=== PATIENT | male | born 1940 | race Caucasian/White ===

== ENCOUNTER 2016-12-02 19:16 | Emergency (ER) | payer MEDICARE, OTHER ==
[2016-12-02 20:00] VITALS: BP 138/77
--- NOTE | 2016-12-02 20:11 | UC ---
Dental HPI - HPI Summary HPI Summary: dental pain x 5 days pain of the 4 of the lower front teeth + pain , swelling, redness no fever, no chills - History of Current Complaint Chief Complaint: UCDentalProblem Stated Complaint: DENTAL COMPLAINT Time Seen by Provider: 12/02/16 20:05 Hx Obtained From: Patient Onset/Duration: Gradual Onset, Lasting Days - 5, Still Present Severity: Moderate Aggravating: Cold, Chewing Alleviating: Nothing Related History: Swelling - Allergies/Home Medications Allergies/Adverse Reactions: Allergies Allergy/AdvReac Type Severity Reaction Status Date / Time Diazepam [From Valium] Allergy See Comment Verified 12/02/16 20:02 Home Medications: Home Medications Aspirin [Aspirin 81 MG TAB] 81 mg PO QAM 12/02/16 [History Confirmed 12/02/16] High Blood Pressure Med 1 tab PO BID 12/02/16 [History Confirmed 12/02/16] PMH/Surg Hx/FS Hx/Imm Hx Cardiovascular History Of: Reports: Hypertension - Surgical History Surgical History: Yes Surgery Procedure, Year, and Place: testicle [id number] - Family History Known Family History: Positive: Hypertension - Social History Alcohol Use: Rare Substance Use Type: None Smoking Status (MU): Former Smoker Review of Systems Constitutional: Negative Skin: Negative Eyes: Negative ENT: Dental Pain Respiratory: Negative Cardiovascular: Negative All Other Systems Reviewed And Are Negative: Yes Physical Exam Triage Information Reviewed: Yes Appearance: Well-Appearing, No Pain Distress, Well-Nourished Vital Signs: Initial Vital Signs Temp 99.6 F 12/02/16 19:51 Pulse 100 12/02/16 19:51 Resp 20 12/02/16 19:51 BP 138/77 12/02/16 19:51 Pulse Ox 95 12/02/16 19:51 Vital Signs Reviewed: Yes Eyes: Positive: Conjunctiva Clear ENT: Positive: Normal ENT inspection, Hearing grossly normal, Pharynx normal Dental: Positive: Percussion Tenderness @, Gross Decay/Caries @, Cellulitis @ - front lower teeth Neck: Positive: Supple, Nontender, No Lymphadenopathy Respiratory: Positive: Chest non-tender, Lungs clear, Normal breath sounds, No respiratory distress Cardiovascular: Positive: No Murmur, Tachycardia Dental Complaint Course/Dx - Differential Dx/Diagnosis Provider Diagnoses: dental pain Discharge - Discharge Plan Condition: Stable Disposition: HOME Prescriptions: Amoxicillin (*) [Amoxicillin 875 MG (*)] 875 mg PO BID #20 tab Patient Education Materials: Toothache (ED) Additional Instructions: follow up with your dentist timothy
== END 2016-12-02 20:22 | disposition home or self-care (01) ==
LOC: UCCORT 19:16
DX: K08.89 Other specified disorders of teeth and supporting structures (principal); I10 Essential (primary) hypertension; Z88.8 Allergy status to other drugs, medicaments and biological substances; Z87.891 Personal history of nicotine dependence
CPT/HCPCS: 99202; G0463

== ENCOUNTER 2017-12-12 07:45 | Emergency (ER) | payer MEDICARE, OTHER ==
[2017-12-12 08:03] VITALS: BP 123/79
--- NOTE | 2017-12-12 08:57 | UC ---
Abdominal Pain Male HPI - HPI Summary HPI Summary: Patient has been 24 hours without being able to keep down food or fluid. Patient has had frequent, patient reports every half hour watery diarrhea. Patient reports rigor and chills in the night. No recent antibiotics, no illness exposures, no recent travel, no abdominal surgeries. - History of Current Complaint Chief Complaint: UCGeneralIllness Stated Complaint: VOMITING Time Seen by Provider: 12/12/17 08:33 Hx Obtained From: Patient Onset/Duration: Sudden Onset, Lasting Days - 1, Still Present Timing: Constant Severity Initially: Moderate Severity Currently: Moderate Location: Discrete At: RLQ, Discrete At: LLQ Radiates: No Character: Cramping - (Please note her and she she is motion as opposed to exam to Aggravating Factor(s): Nothing Alleviating Factor(s): Nothing Associated Signs And Symptoms: Positive: Dizzy - orthostatic with this illness, Decreased Appetite, Nausea, Vomiting, Diarrhea - Allergies/Home Medications Allergies/Adverse Reactions: Allergies Allergy/AdvReac Type Severity Reaction Status Date / Time diazepam [From Valium] Allergy confusion Verified 12/12/17 08:04 Home Medications: Home Medications Amlodipine Besylate/Benazepril [Amlodipine Besylate/Benaz 5-40 mg-] 1 tab PO DAILY 12/12/17 [History Confirmed 12/12/17] Losartan TAB* [Cozaar TAB*] 25 mg PO DAILY 12/12/17 [History Confirmed 12/12/17] PMH/Surg Hx/FS Hx/Imm Hx Previously Healthy: No Cardiovascular History: Hypertension - Surgical History Surgical History: Yes [id number] - Family History Known Family History: Positive: Hypertension - Social History Occupation: Retired Lives: With Family Alcohol Use: Rare Substance Use Type: None Smoking Status (MU): Former Smoker Review of Systems Constitutional: Negative Skin: Negative Eyes: Negative ENT: Negative Respiratory: Negative Cardiovascular: Negative Gastrointestinal: Abdominal Pain, Vomiting, Diarrhea, Nausea Genitourinary: Negative Motor: Negative Neurovascular: Negative Musculoskeletal: Negative Neurological: Negative Psychological: Negative Is Patient Immunocompromised?: No All Other Systems Reviewed And Are Negative: Yes Physical Exam Triage Information Reviewed: Yes Appearance: Well-Appearing, No Pain Distress, Well-Nourished Vital Signs: Initial Vital Signs Temp 98.9 F 12/12/17 08:01 Pulse 98 12/12/17 08:01 Resp 18 12/12/17 08:01 BP 123/79 12/12/17 08:01 Pulse Ox 98 12/12/17 08:01 Vital Signs Reviewed: Yes Eye Exam: Normal Eyes: Positive: Conjunctiva Clear ENT Exam: Normal ENT: Positive: Normal ENT inspection, Hearing grossly normal. Negative: Nasal congestion, Trismus, Muffled voice, Hoarse voice, Dental tenderness Dental Exam: Normal Neck exam: Normal Neck: Positive: Supple, Nontender Respiratory Exam: Normal Respiratory: Positive: Chest non-tender, Lungs clear, Normal breath sounds, No respiratory distress, No accessory muscle use Cardiovascular Exam: Normal Cardiovascular: Positive: RRR, No Murmur, Pulses Normal, Brisk Capillary Refill Abdominal Exam: Other Abdomen Description: Positive: No Organomegaly, Distended, Other: - right and left lower abdomen pain. Negative: CVA Tenderness (R), CVA Tenderness (L), Peritoneal Signs Bowel Sounds: Positive: Present Musculoskeletal Exam: Normal Musculoskeletal: Positive: Strength Intact, ROM Intact, No Edema Neurological Exam: Normal Neurological: Positive: Alert, Muscle Tone Normal Psychological Exam: Normal Skin Exam: Normal Abd Pain Male Course/Dx - Course Course Of Treatment: npo--to ed with driving for further assessment and treatment of abdomen pain nausea,vomting and diarrhea - Differential Dx/Clinical Impression Provider Diagnoses: acute abdomen pain Discharge - Sign-Out/Discharge Documenting (check all that apply): Discharge/Admit/Transfer - Discharge Plan Condition: Fair Disposition: HOME Discharge Disposition Comment: [facility] Emergency Department Patient Education Materials: Acute Abdominal Pain (ED) Referrals: Darío Townsend MD [Medical Doctor] - If Needed Additional Instructions: Nothing to eat or drink please go directly to emergency department at [facility] for further evaluation - Billing Disposition and Condition Condition: FAIR Disposition: HOME
== END 2017-12-12 08:56 | disposition home or self-care (01) ==
LOC: UCEAST 07:45
DX: R10.31 Right lower quadrant pain (principal); R10.32 Left lower quadrant pain; Z88.8 Allergy status to other drugs, medicaments and biological substances; I10 Essential (primary) hypertension; Z87.891 Personal history of nicotine dependence
CPT/HCPCS: 99212; G0463

== ENCOUNTER 2017-12-12 09:16 | Emergency (ER) | payer MEDICARE, OTHER ==
[2017-12-12 09:47] LABS: ABS Basophils 0 10^3/ul (0-0.2); ABS Eosinophils 0 10^3/ul (0-0.6); ABS Lymphocytes 0.8 10^3/ul (1.0-4.8); ABS Monocytes 0.7 10^3/ul (0-0.8); ABS Neutrophils 5.5 10^3/ul (1.5-7.7); ABS Nucleated RBC 0 10^3/ul; Eosinophil % 0.2 % (0-6); Hematocrit 48 % (42-52); Hemoglobin 16.5 g/dl (14.0-18.0); Lymphocyte % 11.1 % (25-47); Mean Corpuscular HGB Conc 34 g/dl (31-36); Mean Corpuscular Hemoglobin 31 pg (27-31); Mean Corpuscular Volume 89 fL (80-94); Mean Platelet Volume 6.6 um3 (7.4-10.4); Nucleated Red Blood Cells % 0; Platelet Count 216 10^3/ul (150-450); Red Blood Count 5.39 10^6/ul (4.0-5.4); Red Cell Distribution Width 15 % (10.5-15)
[2017-12-12 09:56] LABS: INR 0.98 (0.77-1.02)
[2017-12-12 10:06] LABS: EGFR Non-African American 47.8 (>60)
[2017-12-12 10:48] LABS: Urine Appearance Clear; Urine Blood Negative (Negative); Urine Color Amber; Urine Ketones Negative (Negative); Urine Protein Negative (Negative); Urine Specific Gravity 1.029 (1.010-1.030); Urine Urobilinogen Negative (Negative)
[2017-12-12] MEDS ORDERED: Insulin REGULAR(*) 1 UNITS UNIT IV PUSH ONE (11:25)
[2017-12-12] MEDS ORDERED: NS 0.9% 1000 ML* 1,000 ML IV ONE (13:09)
[2017-12-12 15:26] VITALS: BP 157/90
--- NOTE | 2017-12-13 01:33 | ED ---
Arash Pozo Elizabeth, scribed for Rahel Louis MD on 12/12/17 at 0953 . Abdominal Pain/Male - HPI Summary HPI Summary: This patient is a 77 year old M presenting to [facility] accompanied by his with a chief complaint of hourly diarrhea since last night. The patient rates the pain 0/10 in severity. Symptoms aggravated by eating. Symptoms alleviated by nothing. Patient reports dull headache, chills, edema in his left knee, and vomiting once after eating. The patient also reports diarrhea once 2 weeks ago. Patient denies abd pain and fever. The patient has spent a lot of time outside but denies finding any definite ticks on himself, but states he is worried about tick exposure. Patient takes medication for HTN. Patient denies taking any antibiotics recently. No sick contacts. Has not traveled outside the country. Is on city water. Denies blood in the stool. The patient believes he had a colonoscopy at [place] approximately 4 years ago. In room, patients HR was 91 bpm, BP was 147/82, and SPO2 was 96. - History of Current Complaint Chief Complaint: EDAbdPain Stated Complaint: DIARRHEA, GENERAL ILL Time Seen by Provider: 12/12/17 09:24 Hx Obtained From: Patient, Family/Independent Producer Onset/Duration: Gradual Onset, Lasting Days - 2 days, Still Present Timing: Constant, Lasting Days - 2 days Severity Initially: Moderate Severity Currently: Mild Pain Intensity: 0 Pain Scale Used: 0-10 Numeric Location: Other - no abd pain Radiates: No Aggravating Factor(s): Nothing Alleviating Factor(s): Nothing Associated Signs And Symptoms: Positive: Decreased Appetite, Vomiting, Diarrhea , Other - headache, edema in left knee. Negative: Fever - Allergies/Home Medications Allergies/Adverse Reactions: Allergies Allergy/AdvReac Type Severity Reaction Status Date / Time diazepam [From Valium] Allergy confusion Verified 12/12/17 09:21 Home Medications: Home Medications Aspirin EC TAB* [Ecotrin EC Low Dose 81 MG*] 81 mg PO DAILY 12/12/17 [History Confirmed 12/12/17] Losartan TAB* [Cozaar TAB*] 100 mg PO DAILY 12/12/17 [History Confirmed 12/12/17 ] amLODIPine TAB* [Norvasc 5 mg TAB*] 10 mg PO DAILY 12/12/17 [History Confirmed 12/12/17] PMH/Surg Hx/FS Hx/Imm Hx Previously Healthy: No Cardiovascular History: Reports: Hx Hypertension - on meds Opthamlomology History: Denies: Hx Legally Blind EENT History: Denies: Hx Deafness - Surgical History Surgery Procedure, Year, and Place: testicle [id number]. Ankle surgery Infectious Disease History: No Infectious Disease History: Denies: Traveled Outside the [place] in Last 30 Days - Family History Known Family History: Positive: Hypertension - Social History Lives: With Family Alcohol Use: Rare Substance Use Type: Reports: None Smoking Status (MU): Former Smoker Review of Systems Positive: Chills. Negative: Fever Cardiovascular: Negative Respiratory: Negative Positive: Vomiting - x 1 only , Diarrhea - multiple times . Negative: Abdominal Pain Positive: no symptoms reported Positive: Edema - in left knee Skin: Negative Neurological: Negative Psychological: Normal All Other Systems Reviewed And Are Negative: Yes Physical Exam - Summary Physical Exam Summary: Appearance: Well-appearing, no pain distress, well-nourished, patient had to go to the restroom urgently and immediately to have diarrhea upon my entering the exam room Skin: Warm, color reflects adequate perfusion, dry Head: Normal Head/Face inspection, atraumatic Eyes: Conjunctiva clear ENT: Normal inspection Neck: Supple, no nodes, no JVD Respiratory: Lungs clear, normal breath sounds, no respiratory distress Cardio: RRR, No murmur, pulses normal, brisk capillary refill Abdomen: Soft, nontender, non-distended, no organomegaly, no masses Bowel sounds: Present Musculoskeletal: Strength Intact/ROM intact, no calf tenderness, swelling of the left knee (pt states this is chronic, not red or hot) Psychological: Normal Neuro: Alert, muscle tone normal, no focal deficit Triage Information Reviewed: Yes Vital Signs On Initial Exam: Initial Vitals Temp Pulse Resp BP Pulse Ox 98.7 F 98 17 123/76 96 12/12/17 09:18 12/12/17 09:18 12/12/17 09:18 12/12/17 09:18 12/12/17 09:18 Vital Signs Reviewed: Yes Diagnostics - Vital Signs Vital Signs Temp Pulse Resp BP Pulse Ox 12/12/17 09:18 98.7 F 98 17 123/76 96 - Laboratory Lab Results: Lab Results 12/12/17 Range/Units 09:36 WBC 7.0 (3.5-10.8) 10^3/ul RBC 5.39 (4.0-5.4) 10^6/ul Hgb 16.5 (14.0-18.0) g/dl Hct 48 (42-52) % MCV 89 (80-94) fL MCH 31 (27-31) pg MCHC 34 (31-36) g/dl RDW 15 (10.5-15) % Plt Count 216 (150-450) 10^3/ul MPV 6.6 L (7.4-10.4) um3 Neut % (Auto) 78.7 (38-83) % Lymph % (Auto) 11.1 L (25-47) % Wilkes % (Auto) 9.5 H (0-7) % Eos % (Auto) 0.2 (0-6) % Baso % (Auto) 0.5 (0-2) % Absolute Neuts (auto) 5.5 (1.5-7.7) 10^3/ul Absolute Lymphs (auto) 0.8 L (1.0-4.8) 10^3/ul Absolute Monos (auto) 0.7 (0-0.8) 10^3/ul Absolute Eos (auto) 0 (0-0.6) 10^3/ul Absolute Basos (auto) 0 (0-0.2) 10^3/ul Absolute Nucleated RBC 0 10^3/ul Nucleated RBC % 0 Result Diagrams: 12/12/17 09:36 12/12/17 09:36 Lab Statement: Any lab studies that have been ordered have been reviewed, and results considered in the medical decision making process. Re-Evaluation - Re-Evaluation first Re-evaluation Re-Evaluation Time: 12:59 Change: Unchanged Comment: states he is thirsty Second Eval Change: Improved Comment: pt tolerated clear liquids and IV is infusing. Feels better. No further diarrhea while in ED. Able to urinate. Abdominal Pain Fem Course/Dx - Course Course Of Treatment: Patient with hx of HTN reports vomiting and diarrhea but denies abd pain. CRP is very elevated, but C difficile toxin titer in stool is negative. Wbc count is mildly elevated. Pt is not anemic or hypotensive to suggest GI bleed. Lactate is normal. Allergies noted. In the ED course the patient was given IV fluids and tolerated clear liquids po. Pt had Lyme serologies sent due to complaints of chronic joint pains and swelling and exposure to ticks, due to his concern and family's concern. Patient will be discharged home with dx of diarrhea and hypertension in poor control. Patient is informed that the Lyme and several stool tests are still pending. The patient is agreeable with this plan. - Diagnoses Differential Diagnosis/HQI/PQRI: Bowel Obstruction, Diverticulitis, Ischemic Bowel, Other - gastroenteritis Provider Diagnoses: Diarrhea, Hypertension, poor control, Tick bite Discharge - Sign-Out/Discharge Documenting (check all that apply): Discharge/Admit/Transfer - Discharge Plan Condition: Stable Disposition: HOME Patient Education Materials: Acute Diarrhea (ED) Referrals: Darío Townsend MD [Primary Care Provider] - 2 Days Additional Instructions: We have sent Lyme testing on you due to your exposure to ticks. Those results are pending. You received IV fluids, and there are stool tests pending on you. Return to the ER if you have any new or worsening symptoms. - Billing Disposition and Condition Condition: STABLE Disposition: Home The documentation as recorded by the Arash meyers Elizabeth accurately reflects the service I personally performed and the decisions made by , Rahel Louis MD.
--- NOTE | 2017-12-13 10:58 | ED ---
Progress - Progress Note Progress Note: Patient's final stool results reveal positive immunoassay. Negative toxigenic C. difficile and negative O call blood. Patient presented with acute diarrhea. No further treatment at this time. Re-Evaluation - Re-Evaluation first Re-evaluation Re-Evaluation Time: 12:59 Change: Unchanged Course/Dx - Course Course Of Treatment: Patient with hx of HTN reports vomiting and diarrhea but denies abd pain. Test results with no significant abnormalities. Allergies noted. In the ED course the patient was given IV fluids. Patient will be discharged home with dx of diarrhea and hypertension in poor control. Patient is informed of the lyme and stool tests that are still pending. The patient is agreeable with this plan. - Diagnoses Provider Diagnoses: Diarrhea, Hypertension, poor control Discharge - Sign-Out/Discharge Documenting (check all that apply): Post-Discharge Follow Up - Discharge Plan Condition: Stable Disposition: HOME Patient Education Materials: Acute Diarrhea (ED) Referrals: Darío Townsend MD [Primary Care Provider] - 2 Days Additional Instructions: We have sent Lyme testing on you due to your exposure to ticks. Those results are pending. You received IV fluids, and there are stool tests pending on you. Return to the ER if you have any new or worsening symptoms. - Billing Disposition and Condition Condition: STABLE Disposition: Home
== END 2017-12-12 15:25 | disposition home or self-care (01) ==
LOC: ED 09:16
DX: R19.7 Diarrhea, unspecified (principal); T14.8XXA Other injury of unspecified body region, initial encounter; W57.XXXA Bitten or stung by nonvenomous insect and other nonvenomous arthropods, initial encounter; Y93.9 Activity, unspecified; Y92.9 Unspecified place or not applicable; I10 Essential (primary) hypertension; R51 Headache; R11.10 Vomiting, unspecified; R60.0 Localized edema; Z88.8 Allergy status to other drugs, medicaments and biological substances; Z82.49 Family history of ischemic heart disease and other diseases of the circulatory system; Z87.891 Personal history of nicotine dependence; R10.31 Right lower quadrant pain; R10.32 Left lower quadrant pain
CPT/HCPCS: 36415; 80053; 81003; 82150; 82272; 83605; 83630; 83690; 85025; 85610; 85730; 86140; 87045; 87046; 87328; 87329; 87493; 87899; 96374; 99284

== ENCOUNTER 2022-12-30 12:27 | Observation (INO) ==
[2022-12-30 12:55] LABS: ABS Basophils 0.1 10^3/uL (0.0-0.1); ABS Eosinophils 0.3 10^3/uL (0.0-0.5); ABS Lymphocytes 1.6 10^3/uL (1.0-4.8); ABS Neutrophils 7.1 10^3/uL (1.5-7.6); ABS Nucleated RBC 0.01 10^3/ul; Eosinophil % 3.3 %; Hematocrit 45.5 % (38-53); Hemoglobin 15.4 g/dL (13.2-16.3); Lymphocyte % 15.5 %; Mean Corpuscular Hemoglobin 30.2 pg (27-33); Mean Corpuscular Hgb Conc 33.8 g/dL (31-36); Mean Corpuscular Volume 89.2 fL (80-97); Mean Platelet Volume 6.6 fL (7.5-11.2); Nucleated Red Blood Cells % 0.1 /100 WBC (0.0-0.4); Platelet Count 321 10^3/uL (150-450); Red Cell Distribution Width 14.4 % (12-17); White Blood Count 10.2 10^3/uL (3.6-10.2)
[2022-12-30 13:04] LABS: Activated Partial Thrombo Time 27.9 seconds (26.0-38.0); INR 1.08 (0.88-1.18)
[2022-12-30 13:11] LABS: Albumin 3.7 g/dL (3.2-5.2); Albumin/Globulin Ratio 1.1 (1-3); Creatinine, Serum 1.53 mg/dL (0.67-1.17); Globulin 3.5 g/dL (2-4); Magnesium 2.1 mg/dL (1.9-2.7); Potassium 3.1 mmol/L (3.5-5.0); Total Bilirubin 0.5 mg/dL (0.2-1.0); Total Protein 7.2 g/dL (6.4-8.9); eGFR CKD-EPI 45.7 (>60)
[2022-12-30] MEDS ORDERED: Lactated Ringers 1000 ml BAG 1,000 ML IV ONE (13:31)
[2022-12-30] MEDS: KCL 20 MEQ/100 ML IVPREMIX 20 MEQ/100 ML BAG IV SCH ×2 (13:51→16:50)
[2022-12-30] MEDS ORDERED: Heparin DRIP 25,000 UNITS BAG 25,000 UNITS/500 ML BAG IV SCH (14:45)
[2022-12-30] MEDS ORDERED: Heparin 5000 UNITS/ML 1 mL VIAL IV SCH (15:00)
[2022-12-30 16:34] LABS: Creatinine, Serum 1.28 mg/dL (0.67-1.17); eGFR CKD-EPI 56.6 (>60)
[2022-12-30 18:30] LABS: C Reactive Protein 9.69 mg/L (<8.01)
[2022-12-30] MEDS ORDERED: Lactated Ringers 1000 ml BAG 1,000 ML IV SCH (19:00)
[2022-12-31 06:31] LABS: ABS Basophils 0.1 10^3/uL (0.0-0.1); ABS Eosinophils 0.4 10^3/uL (0.0-0.5); ABS Lymphocytes 1.7 10^3/uL (1.0-4.8); ABS Monocytes 0.9 10^3/uL (0.0-1.1); Eosinophil % 4.7 %; Hematocrit 41.6 % (38-53); Hemoglobin 14.5 g/dL (13.2-16.3); Lymphocyte % 21.7 %; Mean Corpuscular Hemoglobin 31.2 pg (27-33); Mean Corpuscular Hgb Conc 34.9 g/dL (31-36); Mean Corpuscular Volume 89.5 fL (80-97); Mean Platelet Volume 6.9 fL (7.5-11.2); Platelet Count 290 10^3/uL (150-450); Red Blood Count 4.65 10^6/uL (4.06-5.63); Red Cell Distribution Width 14.3 % (12-17); White Blood Count 8.1 10^3/uL (3.6-10.2)
[2022-12-31 06:52] LABS: Calcium 8.8 mg/dL (8.6-10.3); Creatinine, Serum 1.25 mg/dL (0.67-1.17); Potassium 3.5 mmol/L (3.5-5.0); eGFR CKD-EPI 58.2 (>60)
[2022-12-31 07:07] LABS: TSH Ultra Thyroid Stim Horm 3.36 mcIU/mL (0.34-5.60)
[2022-12-31] MEDS ORDERED: Sulfur Hexaflouride MICROSPHR 25 MG VIAL ONE (08:25)
[2022-12-31] MEDS ORDERED: Potassium EFFERVES 25 meq TAB PO ONE (10:08)
[2022-12-31] MEDS: Aspirin EC 81 mg TAB.EC (enteric coated) PO SCH (10:09)
[2022-12-31] MEDS: Cholecalciferol (VIT D3) 1,000 unit TAB PO SCH (10:10)
[2022-12-31] MEDS ORDERED: Aminophylline 25 MG/ML VIAL ONE (10:10)
[2022-12-31] MEDS ORDERED: Regadenoson 0.4 MG/5 ML SYRINGE ONE (10:10)
[2022-12-31 17:18] LABS: Urine Appearance Clear; Urine Bilirubin Negative (Negative); Urine Blood Negative (Negative); Urine Color Yellow; Urine Glucose Negative (Negative); Urine Ketones Negative (Negative); Urine Nitrite Negative (Negative); Urine Protein Negative (Negative); Urine Specific Gravity 1.011 (1.002-1.030); Urine Urobilinogen Negative (Negative)
[2022-12-31 17:46] LABS: High Sensitivity Troponin 1 Hr 526 pg/mL (<20)
[2023-01-01 05:42] LABS: ABS Eosinophils 0.4 10^3/uL (0.0-0.5); ABS Lymphocytes 1.7 10^3/uL (1.0-4.8); ABS Monocytes 0.8 10^3/uL (0.0-1.1); ABS Neutrophils 5.9 10^3/uL (1.5-7.6); Eosinophil % 4.8 %; Hematocrit 41.7 % (38-53); Hemoglobin 14.4 g/dL (13.2-16.3); Lymphocyte % 19.2 %; Mean Corpuscular Hemoglobin 30.9 pg (27-33); Mean Corpuscular Hgb Conc 34.5 g/dL (31-36); Mean Corpuscular Volume 89.5 fL (80-97); Mean Platelet Volume 6.9 fL (7.5-11.2); Platelet Count 282 10^3/uL (150-450); Red Blood Count 4.66 10^6/uL (4.06-5.63); Red Cell Distribution Width 14.4 % (12-17); White Blood Count 8.8 10^3/uL (3.6-10.2)
[2023-01-01 05:58] LABS: Calcium 8.7 mg/dL (8.6-10.3); Creatinine, Serum 1.07 mg/dL (0.67-1.17); Magnesium 1.9 mg/dL (1.9-2.7); Potassium 3.8 mmol/L (3.5-5.0); eGFR CKD-EPI 70.2 (>60)
[2023-01-01] MEDS: Cholecalciferol (VIT D3) 1,000 unit TAB PO SCH (08:29)
[2023-01-01] MEDS: Aspirin EC 81 mg TAB.EC (enteric coated) PO SCH (08:30)
[2023-01-01] MEDS ORDERED: Potassium Chlor 20 meq TAB.ER PO ONE (09:09)
[2023-01-01] MEDS ORDERED: Magnesium Sulfate 2 gm BAG 2 GM/50 ML BAG IVPB ONE (09:10)
[2023-01-01 14:13] VITALS: BP 125/69
== END 2023-01-01 15:30 | disposition home or self-care (01) ==
LOC: EDHOLD 12:27 → ED 12:27 → MEDTELE 18:30
PROVIDERS: ADMIT Internal Medicine; ATTEND Internal Medicine